=== PATIENT | female | born 1985 | race Caucasian/White ===

== ENCOUNTER 2019-10-27 16:01 | Emergency (ER) | payer OTHER, SELFPAY ==
--- NOTE | ~2019-10-27 | CT_ITS ---
EXAMINATION: CTA chest PE protocol DATE: 10/27/2019 17:24 INDICATION: Chest pain. TECHNIQUE: Computed tomography angiography (CTA) of the chest was performed with 100 mL Omnipaque-350 intravenous contrast timed to evaluate the pulmonary arteries. Coronal maximum intensity projection 3D-reconstructions were created by the technologist. Automated exposure control and iterative reconst ruction technique were employed. The dose-length product was 315.41 mGy-cm. COMPARISON: Chest CT 03/29/2019 FINDINGS: There is no pneumonia, pleural effusion, or pneumothorax. The heart size is normal. No nick cardial effusion. There is no pulmonary embolus. There is mild thoracic spondylosis. IMPRESSION: 1. No pulmonary embolus. Reviewed, dictated and finalized at location A. IMPRESSION: 1. No pulmonary embolus.
--- NOTE | 2019-10-27 16:04 | ED.ABDPAIN ---
HPI - Abdominal Pain General Chief Complaint: Shortness of Breath/Dyspnea Stated Complaint: cp Time Seen by Provider: 10/27/19 16:03 History of Present Illness HPI narrative: Patient is a 34-year-old female who presents with left-sided intermittent chest pain that is been present now for the last 4 days patient notes she has had a cough that is dry but also notes history of PE patient denies any pain upon arrival notes that the pain comes and goes patient notes she is also had some dyspnea patient has had some mild upper respiratory symptoms denies fever vomiting diarrhea Pertinent past history: past UTI Related Data Home Medications Medication Instructions Recorded Confirmed aspirin [Aspir-81] 10/27/19 multivitamin [Daily Multi-Vitamin] tablet 10/27/19 Allergies Allergy/AdvReac Type Severity Reaction Status Date / Time No Known Allergies Allergy Unknown Verified 10/27/19 16:24 No Known Allergies Allergy Other Uncoded 10/27/19 16:24 Review of Systems Review of Systems: All systems reviewed & are unremarkable except as noted in HPI and below PMFSH Past Medical History Medical History (Updated 10/27/19 @ 17:47 by Wang Flores PA-C) Pulmonary embolism Family History Family History (Updated 05/18/18 @ 15:39 by DOCTOR UNKNOWN) Grandparent Family history of malignant melanoma Other Cerebrovascular accident Diabetes mellitus Family history of cardiovascular disease Family history of malignant neoplasm Hypertension Social History Social History Smoking status: Never smoker Alcohol intake: never Exam Narrative: Exam Narrative: GENERAL: Well-appearing, well-nourished, and in no acute distress. HEAD: Normocephalic, atraumatic. EYES: PERRLA and EOMI. ENT: Nares clear, no rhinorrhea or epistaxis. Mucous membranes moist. CHEST: Clear to auscultation. No respiratory distress. No wheezes rales or rhonchi HEART: Regular rate and rhythm. No murmur heard. Normal peripheral pulses. ABDOMEN: Soft, nontender, nondistended EXTREMITIES: Normal range of motion. No edema. SKIN: Warm, dry, no rash. NEURO: No focal deficits. Alert and oriented x3. PSYCH: Normal mood and affect. Course Course Emergency Course: Patient in the room in no distress aware of case findings treatment plan and diagnosis agreeing to follow-up as directed or to return if symptoms worsen or concern MDM - Abdominal Pain MDM Narrative Medical decision making narrative: Patients EKGs and labs are without significant high risk changes. Cardiac risk factors were reviewed. Patient is felt likely to be low risk for ACS and reasonable for further risk stratification testing as an outpatient. Pain was not sudden or maximal in onset without tearing or ripping. quality. No other signs or symptoms to suggest aortic dissection. A low-risk Wells criteria is noted. PE is felt to be unlikely. No pneumonia or URI symptoms were seen on evaluation today. Patient is felt to be reasonable for continued evaluation as an outpatient. Imaging Data Radiologist's impression: ITS Impressions Chest CTA 10/27/19 17:25 IMPRESSION: 1. No pulmonary embolus. ECG Data EKG #1: ECG completion date: 10/27/19 ECG completion time: 17:46 sinus rhythm, non-specific ST changes, normal QRS, normal QT and NL axis Discharge Plan Discharge Clinical Impression: Chest pain Patient Disposition: Home, Self-Care Condition: Stable Instructions: Antibiotic Form, Chest Pain (ED) Additional Instructions: Follow up with your primary care provider within 1-2 days to set up for reevaluation. Go to ER for shortness of breath, difficulty breathing, chest pain, fever/chills, weakness, nauseau/vomitting, etc. or any other concerns. Take any prescribed medications as directed. If you do not have a drug allergy to tylenol or motrin and can tolerate it then take tylenol or mo
[2019-10-27 16:06] VITALS: BP 129/86; PULSE 96; RESP 20; TEMP 36.6; O2SAT 99
--- NOTE | 2019-10-27 16:15 | ECG_ITS ---
Measurements Intervals [place] Rate: 89 P: 18 IN: 116 QRS: -14 QRSD: 86 T: 16 QT: 327 QTc: 398 Interpretive Statements SINUS RHYTHM WITH SHORT IN INTERVAL BORDERLINE T WAVE ABNORMALITY- INFERIOR LEADS BORDERLINE ECG Electronically Signed On 10-27-2019 19:46:46 CDT by Osiel Sosa D.O.
[2019-10-27 16:23] LABS: Basophils Absolute Auto 0.1 K/mm3 (0.0-0.1); Basophils Percent Auto 0.8 % (0.2-1.2); Eosinophils Absolute Auto 0.4 K/mm3 (0-0.3); Eosinophils Percent Auto 4.3 % (0-4.4); Hematocrit 35.3 % (37.0-47.0); Hemoglobin 11.2 g/dL (12.0-15.0); Immature Granulocyte Absolute 0.03 K/mm3 (0.00-0.031); Immature Granulocyte Percent A 0.3 % (0-0.5); Lymphocytes Absolute Auto 2.39 K/mm3 (0.9-3.2); Lymphocytes Percent Auto 25.8 % (18.3-44.2); Mean Corpuscular HGB Conc 31.7 g/dl (32-36); Mean Corpuscular Hemoglobin 27.9 pg (26-34); Mean Corpuscular Volume 87.8 fl (80-100); Mean Platelet Volume 8.4 fl (7.4-10.4); Monocytes Absolute Auto 0.8 K/mm3 (0.1-0.6); Monocytes Percent Auto 8.3 % (2.6-8.5); Neutrophils Absolute Auto 5.6 K/mm3 (1.3-6.7); Neutrophils Percent Auto 60.5 % (45.5-73.1); Platelet Count Result 392 k/mm3 (150-375); Red Blood Count 4.02 M/mm3 (4.2-5.4); Red Cell Distribution Width 13.2 % (11.5-14.5); White Blood Count 9.3 K/mm3 (4.5-10.0)
[2019-10-27 16:36] LABS: Blood Urea Nitrogen 19 mg/dL (7-17); Calcium 8.9 mg/dL (8.4-10.2); Carbon Dioxide 26 mmol/L (22-30); Chloride 105 mmol/L (98-107); Estimated CRCL calculation 85 ml/min; Estimated Glomerular Filt Rate > 60; Glucose 97 mg/dL (65-105); Potassium 3.9 mmol/L (3.4-5.0); Sodium 140 mmol/L (137-145)
[2019-10-27 16:48] LABS: NT Pro B Type Natriuretic Pept 37 PG/ML (5-100); Troponin I < 0.012 ng/mL (0.000-0.034)
[2019-10-27 16:55] LABS: Prothrombin Time 12.8 Seconds (11.1-14.7)
[2019-10-27 16:56] LABS: Partial Thromboplastin Time 28.4 SECONDS (22.3-36.8)
[2019-10-27 17:00] VITALS: BP 124/71; PULSE 97; RESP 16; O2SAT 100
[2019-10-27 18:00] VITALS: BP 112/72; PULSE 92; RESP 16; O2SAT 100
== END 2019-10-27 18:05 | disposition home or self-care (01) ==
PROVIDERS: Emergency Medicine Emergency Medical Services; Emergency Provider Emergency Medicine; PCP Internal Medicine Geriatric Medicine
DX: R07.9 Chest pain, unspecified (principal); Z86.711 Personal history of pulmonary embolism; Z79.82 Long term (current) use of aspirin; R94.31 Abnormal electrocardiogram [ECG] [EKG]
CPT/HCPCS: 36415; 71275; 80048; 83880; 84484; 85025; 85610; 85730; 93005; 99284; Q9967

== ENCOUNTER 2020-04-13 11:19 | Outpatient (CLI) | payer OTHER, SELFPAY ==
--- NOTE | ~2020-04-13 | US_ITS ---
EXAMINATION: US pelvic complete w TV DATE: 04/13/2020 14:59 INDICATION: Menorrhagia TECHNIQUE: Multiple transabdominal and endovaginal sonographic images of the pelvis were obtained. COMPARISON: None. FINDINGS: The uterus measures 8.3 x 3.9 x 4.8 cm. The endometrial complex measures 7 mm. The right ov soto measures 2.9 x 2.3 x 1.8 cm. The left ovary measures 3.5 x 2.2 x 2.2 cm. There is normal vascular flow in the ovaries. There is no free fluid in the pelvis. IMPRESSION: 1. No sonographic correlate for the patient's symptoms. Reviewed, dictated and finalized at location B.
== END 2020-04-13 11:20 | disposition home or self-care (01) ==
LOC: ANHIMG 11:24
PROVIDERS: PCP Internal Medicine Geriatric Medicine; Visit Provider Obstetrics & Gynecology
DX: N92.0 Excessive and frequent menstruation with regular cycle (principal)
CPT/HCPCS: 76830; 76856

== ENCOUNTER 2020-08-31 19:17 | Emergency (ER) | payer OTHER, SELFPAY ==
[2020-08-31 19:30] VITALS: BP 155/86; PULSE 104; RESP 18; TEMP 36.4; O2SAT 98
--- NOTE | 2020-08-31 19:52 | ED.URI ---
HPI - URI/Sore Throat General Chief Complaint: Upper Respiratory Infection Stated Complaint: sore throat Time Seen by Provider: 08/31/20 19:41 Source: patient and RN notes reviewed Mode of arrival: ambulatory Limitations: no limitations History of Present Illness HPI Narrative: Patient presents today complaining of 4-day history of sore throat that has been worse since yesterday. Denies any additional symptoms to include cough, congestion, rhinorrhea, fever, nausea, vomiting, diarrhea. She had COVID-19 in May. Currently rates her pain 5/10, which increases with swallowing. She has tried no [id number] treatment prior to arrival. She is a non-smoker. MD elicited complaint: sore throat Related Data Home Medications Medication Instructions Recorded Confirmed aspirin [Aspir-Low] 81 mg PO DAILY 08/31/20 08/31/20 Allergies Allergy/AdvReac Type Severity Reaction Status Date / Time No Known Allergies Allergy Unknown Verified 08/31/20 19:39 Review of Systems Review of Systems: Narrative: CONSTITUTIONAL: Denies body aches, fever, chills, or sweats. EYES: Denies visual changes, redness, or discharge. ENT: Denies rhinorrhea, congestion, or otalgia.+ Sore throat CARDIOVASCULAR: Denies chest pain, palpitations, or edema. RESPIRATORY: Denies cough or dyspnea. GASTROINTESTINAL: Denies abdominal pain, nausea, vomiting, or diarrhea. GENITOURINARY: Denies dysuria or hematuria. SKIN: Denies rash, itching, or wounds. MUSCULOSKELETAL: Denies back pain, joint pain, or myalgia. NEUROLOGIC: Denies headache, numbness, tingling, or weakness. PSYCH: Denies depression or anxiety. [facility] Past Medical History Medical History Pulmonary embolism Family History Family History Grandparent Family history of malignant melanoma Other Cerebrovascular accident Diabetes mellitus Family history of cardiovascular disease Family history of malignant neoplasm Hypertension Social History Social History Smoking status: Never smoker Alcohol intake: never Comments At time of signature, I have reviewed and agree with nursing past medical, surgical, social and family history unless otherwise noted. Please see nursing chart for further information. There is no relevant family history pertinent to the presenting complaint Exam Narrative: Exam Narrative: GENERAL: Well-appearing, well-nourished, and in no acute distress. HEAD: Normocephalic, atraumatic. EYES: EOMI. No redness or drainage. Conjunctivae normal. ENT: Mucous membranes pink and moist. Nares clear. No rhinorrhea. TMs normal bilaterally. Throat mildly erythematous posteriorly, but otherwise normal. Uvula midline. NECK: Normal AROM. Supple. No lymphadenopathy. CHEST: No respiratory distress. Clear to auscultation. HEART: Regular rate and rhythm. No murmur appreciated. Normal peripheral pulses. EXTREMITIES: Normal range of motion. No edema. SKIN: Warm, dry, no rash. Capillary refill normal. Normal skin turgor. NEURO: No focal deficits. Alert and oriented x3. Gait steady. PSYCH: Normal affect. No signs of depression or anxiety. Course Vital Signs Vital signs: Vital Signs Temperature 97.5 F L 08/31/20 19:30 Pulse Rate 104 H 08/31/20 19:30 Respiratory Rate 18 08/31/20 19:30 Blood Pressure 155/86 H 08/31/20 19:30 Pulse Oximetry 98 08/31/20 19:30 Temperature 97.5 F L 08/31/20 19:30 Pulse Rate 104 H 08/31/20 19:30 Respiratory Rate 18 08/31/20 19:30 Blood Pressure 155/86 H 08/31/20 19:30 Pulse Oximetry 98 08/31/20 19:30 Reviewed. Pt has been instructed to follow up with her PCP regarding her elevated blood pressure today. MDM - URI/Sore Throat Differential Diagnosis Differential diagnosis: Likely upper respiratory infection, otitis media, viral infectio
== END 2020-08-31 20:00 | disposition home or self-care (01) ==
PROVIDERS: Emergency Provider Nurse Practitioner; PCP Internal Medicine Geriatric Medicine
DX: J02.8 Acute pharyngitis due to other specified organisms (principal); Z86.16 Personal history of COVID-19; Z86.711 Personal history of pulmonary embolism; Z79.82 Long term (current) use of aspirin
CPT/HCPCS: 87081; 87880; 99213; G0463

== ENCOUNTER → 2020-10-09 02:20 | Outpatient (CLI) | payer OTHER, SELFPAY ==
[2020-10-09 22:46] LABS: SARS-CoV-2 RNA PCR Negative
== END ==
PROVIDERS: PCP Internal Medicine Geriatric Medicine; Visit Provider Urology
DX: Z01.812 Encounter for preprocedural laboratory examination (principal); Z20.822 Contact with and (suspected) exposure to COVID-19
CPT/HCPCS: C9803; U0003; U0005

== ENCOUNTER 2020-10-09 12:22 | Outpatient (CLI) | payer OTHER, SELFPAY ==
[2020-10-09 12:54] LABS: Hematocrit 41.6 % (37.0-47.0); Hemoglobin 13.8 g/dL (12.0-15.0)
== END 2020-10-09 12:23 | disposition home or self-care (01) ==
LOC: ANHSURGERY 12:23
PROVIDERS: Obstetrics & Gynecology; PCP Internal Medicine Geriatric Medicine; Visit Provider Urology
DX: Z01.818 Encounter for other preprocedural examination (principal); N39.3 Stress incontinence (female) (male); N92.6 Irregular menstruation, unspecified
CPT/HCPCS: 36415; 85014; 85018; 87086; 87088

== ENCOUNTER 2020-10-12 00:51 | Day surgery (SDC) | payer OTHER, SELFPAY ==
--- NOTE | 2020-10-06 09:57 | PM.IMHP ---
H&P: HPI History of Present Illness Date/Time: 10/06/20 09:57 Chief Complaint: stress incontinence Narrative: Krysta Parker is a 35 year old female with stress incontinence Review of Systems Review of Systems: All systems reviewed & are unremarkable except as noted in HPI and below PMFSH Past Medical History Medical History Pulmonary embolism Family History Family History Grandparent Family history of malignant melanoma Other Cerebrovascular accident Diabetes mellitus Family history of cardiovascular disease Family history of malignant neoplasm Hypertension Social History Social History Smoking status: Never smoker Alcohol intake: never Meds Home Medications and Allergies Home Medications Medication Instructions Recorded Confirmed Type aspirin [Aspir-Low] 81 mg PO DAILY 08/31/20 08/31/20 History Allergies Allergy/AdvReac Type Severity Reaction Status Date / Time No Known Allergies Allergy Unknown Verified 08/31/20 19:39 Exam Const: General: cooperative and healthy appearing HENMT: Head: normal to inspection Eyes: General: appearance normal, both eyes and all related structures Resp: Effort & Inspection: normal respiratory effort and able to speak in complete sentences Back/Spine/Pelvis: Back: no CVA tenderness Neuro: General: patient oriented x3 Assessment and Plan Assessment and plan (1) KATALINA (stress urinary incontinence, female): Code(s): N39.3 - Stress incontinence (female) (male) Status: Acute Assessment and Plan: urethral sling
[2020-10-09 10:15] VITALS: BMI 25.7
--- NOTE | 2020-10-09 11:50 | PM.IMHP ---
H&P: HPI History of Present Illness Date/Time: 10/09/20 11:50 Chief Complaint: bleeding refractory to medical therapy Narrative: Krysta Parker is a 35 year old female 3 para 3 is admitted for removal of Mirena hysteroscopy dilatation curettage. She has had heavy irregular bleeding. She would like to have a Nexplanon placed as well. She is undergoing a sling with Dr. Avalos concomitantly. Risks and benefits reviewed Review of Systems Review of Systems: All systems reviewed & are unremarkable except as noted in HPI and below PMFSH Past Medical History Medical History Pulmonary embolism Family History Family History Grandparent Family history of malignant melanoma Other Cerebrovascular accident Diabetes mellitus Family history of cardiovascular disease Family history of malignant neoplasm Hypertension Social History Social History Smoking status: Never smoker Alcohol intake: never Spiritual care concerns: No Meds Home Medications and Allergies Home Medications Medication Instructions Recorded Confirmed Type aspirin [Aspir-Low] 81 mg PO DAILY 08/31/20 10/09/20 History Adult Multivitamin Gummies 1 tablet PO DAILY 10/09/20 10/09/20 History Allergies Allergy/AdvReac Type Severity Reaction Status Date / Time No Known Allergies Allergy Unknown Verified 08/31/20 19:39 Exam Const: General: no acute distress Eyes: General: appearance normal, both eyes and all related structures Neck: Neck: supple and no JVD Thyroid: thyroid normal Resp: Effort & Inspection: normal respiratory effort Auscultation: clear to auscultation bilaterally Cardio: Rate: regular rate Rhythm: regular rhythm GI: Inspection: non-distended GI Palp: Yes Soft to palpation, No Tenderness to palpation present (GI) and No Guarding due to palpation present (GI) Auscultation: normal bowel sounds : General: Yes bladder normal to palpation External Female Exam: normal external appearance Speculum Exam - Vagina: normal vaginal discharge and No vaginal bleeding Speculum Exam - Cervix: nontender Bimanual exam- vagina & uterus: bladder normal to palpation and No Cervical tenderness present OB/external & speculum: No vaginal bleeding Skin: General skin exam: no rashes or lesions noted Extrem: General: normal to inspection and no edema Psych: Mental Status: mental status grossly normal Affect: normal affect Assessment and Plan Additional Plan impression: Irregular bleeding extraction to medical therapy Plan: Hysteroscopy / dilatation curettage / IUD removal. We will place Nexplanon as well
--- NOTE | 2020-10-12 06:29 | WPDHPUPDATE1 ---
History and Physical Update Update Date/Time: 10/12/20 06:29 History and Physical has been reviewed, including an updated exam of the patient. There are NO changes in the patient's condition. Risks, benefits, and alternatives have been discussed and questions answered. Patient agrees to proceed with procedure.
--- NOTE | 2020-10-12 06:30 | WPDHPUPDATE1 ---
History and Physical Update Update Date/Time: 10/12/20 06:30 History and Physical has been reviewed, including an updated exam of the patient. There are NO changes in the patient's condition. Risks, benefits, and alternatives have been discussed and questions answered. Patient agrees to proceed with procedure.
--- NOTE | 2020-10-12 07:17 | WPDHPUPDATE1 ---
History and Physical Update Update Date/Time: 10/12/20 07:17 History and Physical has been reviewed, including an updated exam of the patient. There are NO changes in the patient's condition. Risks, benefits, and alternatives have been discussed and questions answered. Patient agrees to proceed with procedure.
[2020-10-12] MEDS: LACTATED RINGERS 1,000 ML 30 ML IV CONT ×2 (07:29→10:13)
[2020-10-12] MEDS: ACETAMINOPHEN 500 MG TABLET 1000 MG PO (07:31)
--- NOTE | 2020-10-12 08:00 | WPDANESEPPF ---
Anes - Initial Pre Proc Eval Procedure: Operation Date: 10/12/20 09:15 Proposed Procedures p Urethral Sling - Kavon Avalos MD s Hysteroscopy Dilation and Curettage And Removal Of Intrauterine Device, Insertion Of Explanon - Sanya Roberts MD Date/Time: 10/12/20 08:00 Surgeon: Kavon Avalos MD Pre Op Diagnosis: Stress Incontinence, Irregular Bleeding Patient Data Age: 35 Gender: F Height: 1.63 m Weight: 68.04 kg Allergies Allergy/AdvReac Type Severity Reaction Status Date / Time No Known Allergies Allergy Unknown Verified 08/31/20 19:39 Home Medications Medication Instructions Recorded Confirmed Type aspirin [Aspir-Low] 81 mg PO DAILY 08/31/20 10/09/20 History Adult Multivitamin Gummies 1 tablet PO DAILY 10/09/20 10/09/20 History Patient hx anesthesia problems: none Family hx anesthesia problems: none PMFSH Past Medical History Medical History Pulmonary embolism Family History Family History Grandparent Family history of malignant melanoma Other Cerebrovascular accident Diabetes mellitus Family history of cardiovascular disease Family history of malignant neoplasm Hypertension Social History Social History Smoking status: Never smoker Alcohol intake: never Living arrangements: with family Spiritual care concerns: No Anes - Eval Final PreProcedure Day of Procedure 10/12/20 08:00 Patient weight: normal Heart: regular rate and rhythm Lungs: clear to auscultation and normal air movement Airway: Mallampati scale class II Neurological: alert and oriented Last oral intake: >/= 8 hours ASA classification: II Emergent: no Anesthetic plan: proceed Anesthesia type and monitoring: general GIVS and LMA Informed Consent: The patient's anesthetic plan and its attendant risks and benefits were discussed with the patient/family/POA. Questions were solicited and answers provided to the satisfaction of the patient/family/POA.
[2020-10-12 08:22] VITALS: BP 120/77; PULSE 82; RESP 18; TEMP 36.4; O2SAT 100
[2020-10-12] MEDS: ceFAZolin 2 GM/D5W 50 ML 2 GM/50 ML BAG IVPB (09:30)
[2020-10-12] MEDS: KETOROLAC 15 MG/ML VIAL (*BKC) IV PUSH (09:38)
[2020-10-12] MEDS: BUPIVACAINE/EPINEPHRINE 0.25% 50 ML VIAL 10 ML INFILTRATE (09:46)
--- NOTE | 2020-10-12 09:54 | SUR.OPER ---
Nexplanon device inserted into left arm by Dr. Fred Marsh.
--- NOTE | 2020-10-12 09:56 | P.OP_ITS ---
Procedure Note - Detailed Date of procedure: 10/12/20 Pre-op diagnosis: Stress Incontinence, Irregular Bleeding Stress urinary incontinence Post-op diagnosis: same Procedure performed: Transobturator Mid-urethral sling Cystoscopy Description of procedure: Anesthesia: Mac, local This is a patient with confirmed stress urinary incontinence. She desires correction. She understands the risks of bleeding, infection, damage to the urinary tract, lack of cure of stress incontinence, recurrence of stress incontinence, postoperative voiding dysfunction including incontinence and retention, need for ancillary procedures to loosen remove the sling, postoperative voiding dysfunction including retention and overactive bladder, hip and leg pain, dyspareunia, mesh related complications including exposure and extrusion. She agrees to proceed. She understands it will not help overactive bladder symptoms if present. She was correctly identified and informed consent obtained. She is brought to the operating room. She was given appropriate anesthesia. She was placed in the dorsal lithotomy position. All pressure points were padded. She was given appropriate perioperative antibiotics and a time-out performed. A Perry catheter is placed. I marked out the thigh incisions anesthetize the skin and made those incisions. I anesthetized the anterior vaginal wall over the mid urethra. I made a 1 cm incision. I dissected out laterally taking great care not to injure the urethra or the vaginal wall. Passed the helical trocars 1st on the left and then on the right from the thigh incision towards the vaginal incision. Sling was connected to the trocars and brought out through the thigh incision. I tensioned the sling appropriately. I cut and removed the plastic sheaths. I closed the incision with 2 0 Vicryl. I then performed cystoscopy. There was no surgical artifact or abnormalities inside the bladder. The urethra was normal without surgical artifact. I cut the excess sling material. I shandra sed the incisions with glue. I then turned her over to her research coordinator for the remainder of her surgery. Implants: Mid urethral sling Surgeon: Kavon Avalos MD Drains: No Packing: No Pathology: none sent Complications: No immediate complications Condition: stable Disposition: PACU
[2020-10-12 10:13] VITALS: BP 106/64; PULSE 79; RESP 16; O2SAT 99
--- NOTE | 2020-10-12 10:16 | P.OP_ITS ---
Procedure Note - Detailed Date of procedure: 10/12/20 Pre-op diagnosis: Stress Incontinence, Irregular Bleeding Surgeon: Sanya Roberts MD Postop diagnosis: Stress urinary incontinence/irregular bleeding/change in contraception Procedure: Hysteroscopy/dilatation and curettage/removal of IUD/placement of Ne xplanon. This was done in conjunction with AT OT performed by Dr. Avalos EBL: 5cc for my portion Anesthesia: IV sedation and local Complications: None Findings: An old IUD that was somewhat ectopic iud placed low in the uterine cervix. Thickened irregular endometrial tissue on hysteroscopy Description of procedure: The patient was prepped and draped in the sterile fashion and Dr. Avalos undertook a T of T. 2.5cc of 1% xylocaine anesthesia was then placed at 2:48 a.m. and 10:00 a.m. respectively of the cervix. The uterus sounded to 8cm after the IUD was removed in full. Serial dilatation with fragmented dilators performed followed by passage of the 5mm visualizing hysteroscope using normal saline as visualizing medium. Thick irregular endometrial tissue was seen but no evidence of polyp or other distinguishable abnormal tissue. The uterus was then scraped over the entire 360? until a good grating sound was heard. The instruments removed and blood loss estimated at5cc. Next the left antecubital area was swabbed with Betadine solution. The Nexplanon was placed subcutaneously and the correct fashion and palpated subcutaneously and correct placement. Blood loss for that portion was none. She tolerated procedure well. All sponge, needle, instrument counts were correct. There were no immediate complications
[2020-10-12 10:45] VITALS: BP 104/58; PULSE 75; RESP 14; O2SAT 100
[2020-10-12 11:15] VITALS: BP 96/68; PULSE 69; RESP 14
--- NOTE | 2020-10-12 16:48 | SUR.PHASEII ---
1110; PT AWAKE AND ALERT. DENIES PAIN OR NAUSEA. STATES SHE IS READY TO GO HOME.
== END 2020-10-12 11:25 | disposition home or self-care (01) ==
PROVIDERS: Obstetrics & Gynecology; PCP Internal Medicine Geriatric Medicine; Visit Provider Urology
PROC: (CPT 57288; principal; 2020-10-12 09:15)
PROC: 0U5B8ZZ Destruction of Endometrium, Via Natural or Artificial Opening Endoscopic (ICD-10-PCS; CPT 58563; 2020-10-12 09:15)
DX: N39.3 Stress incontinence (female) (male) (principal); N93.9 Abnormal uterine and vaginal bleeding, unspecified; Z30.432 Encounter for removal of intrauterine contraceptive device; Z86.711 Personal history of pulmonary embolism; Z79.82 Long term (current) use of aspirin
CPT/HCPCS: 58558; 58301; 11981; 57288; 36415; 85014; 85018; 87086; 87088; 88305; A9270; C1771; C9803; J0690; J1100; J1885; J2250; J2405; J2704; J3010; J7030; J7120; U0003; U0005

== ENCOUNTER 2020-11-29 15:04 | Outpatient (CLI) | payer OTHER, SELFPAY ==
--- NOTE | ~2020-11-29 | MR_ITS ---
EXAMINATION: MR knee RT wo con DATE: 11/29/2020 15:52 INDICATION: Right knee pain TECHNIQUE: Magnetic resonance imaging (MRI) of the right knee was performed without intravenous contr ast. Sequences included coronal PD-weighted FSE, coronal PD-weighted FS FSE, sagittal T2-weighted FS E, sagittal PD-weighted FS FSE and axial PD weighted fat saturated FSE. COMPARISON: None. FINDINGS: Medial compartment: Complex tear of the body and posterior horn of the medial meniscus. This includes a longitudinal hori zontal tear plane extending to the inferior articular surface and a secondary radial tear involving t he inner third of the meniscus at the junction of the body and posterior horn. Scattered chondral magno face irregularity along the weightbearing medial femoral condyle. Cartilage at the medial tibial plat eau appears relatively preserved however there is mild subarticular edema along the medial rim. Lateral compartment: Lateral meniscus is normal. Mild partial-thickness chondral fissuring along the posterior rim of the lateral tibial plateau. Patellofemoral compartment: Focal chondral swelling and partial-thickness fissuring at the inferior aspect of the medial trochlea . Remaining cartilage in the patellofemoral compartment is normal. Ligaments and tendons: Anterior and posterior cruciate ligaments are normal. The medial collateral ligament and fibular jacquie ateral ligament complex are normal. The extensor mechanism is normal. The visualized medial and later al hamstring tendons as well as the iliotibial band are normal. Fluid: Physiologic amount of fluid in the joint space. No loose osteochondral bodies identified. Osseous/other: Normal marrow signal. No fracture or abnormal marrow replacing process. There is edema in the superfi cial suprapatellar fat pad which can be seen with fat pad impingement syndrome. IMPRESSION: 1. Complex medial meniscal tear. 2. Minimal tricompartmental osteoarthritis. 3. Edema in the superficial suprapatellar fat pad which can be seen with fat pad impingement syndrome . Reviewed, dictated and finalized at location A. IMPRESSION: 1. Complex medial meniscal tear. 2. Minimal tricompartmental osteoarthritis. 3. Edema in the superficial suprapatellar fat pad which can be seen with fat pa d impingement syndrome.
== END 2020-11-29 15:05 | disposition home or self-care (01) ==
PROVIDERS: PCP Internal Medicine Geriatric Medicine; Visit Provider Orthopaedic Surgery
DX: M22.41 Chondromalacia patellae, right knee (principal); M25.561 Pain in right knee; S83.231A Complex tear of medial meniscus, current injury, right knee, initial encounter; M17.11 Unilateral primary osteoarthritis, right knee; M79.89 Other specified soft tissue disorders
CPT/HCPCS: 73721

== ENCOUNTER 2021-02-07 00:06 | Day surgery (SDC) | payer OTHER, SELFPAY ==
[2021-02-05 09:27] VITALS: BMI 25.7
--- NOTE | 2021-02-06 10:07 | WPDANESEPPF ---
Anes - Initial Pre Proc Eval Procedure: Operation Date: 02/07/21 10:30 Proposed Procedures p Right Knee Arthroscopic Partial Medial Meniscectomy - Sean Duran MD Date/Time: 02/06/21 10:07 Surgeon: Sean Duran MD Pre Op Diagnosis: chondromylasia right patella Patient Data Age: 35 Gender: F Height: 1.63 m Weight: 68.04 kg Allergies Allergy/AdvReac Type Severity Reaction Status Date / Time No Known Allergies Allergy Unknown Verified 08/31/20 19:39 Home Medications Medication Instructions Recorded Confirmed Type aspirin 81 mg PO DAILY 08/31/20 02/05/21 History Adult Multivitamin Gummies 1 tablet PO DAILY 10/09/20 02/05/21 History Patient hx anesthesia problems: none Family hx anesthesia problems: none [facility] Past Medical History Medical History (Updated 02/06/21 @ 10:07 by Jon Quinteros DO) Pulmonary embolism with Family History Family History Grandparent Family history of malignant melanoma Other Cerebrovascular accident Diabetes mellitus Family history of cardiovascular disease Family history of malignant neoplasm Hypertension Social History Social History Smoking status: Never smoker Alcohol intake: never Living arrangements: with family Spiritual care concerns: No Anes - Eval Final PreProcedure Day of Procedure 02/06/21 10:07 Patient weight: overweight Heart: regular rate and rhythm Lungs: clear to auscultation and normal air movement Airway: Mallampati scale class II Neurological: alert and oriented Last oral intake: >/= 8 hours ASA classification: II Emergent: no Anesthetic plan: proceed Anesthesia type and monitoring: general LMA and standard monitoring Informed Consent: The patient's anesthetic plan and its attendant risks and benefits were discussed with the patient/family/POA. Questions were solicited and answers provided to the satisfaction of the patient/family/POA.
[2021-02-07] VITALS (9 sets, daily range): BP systolic 109–144; BP diastolic 68–78; PULSE 71–94; RESP 12–20; TEMP 37.2; O2SAT 97–100
[2021-02-07] MEDS: ACETAMINOPHEN 500 MG TABLET 1000 MG PO (08:45)
[2021-02-07] MEDS: KETOROLAC 15 MG/ML VIAL (*BKC) IV PUSH (08:55)
[2021-02-07] MEDS: LACTATED RINGERS 1,000 ML 30 ML IV CONT ×2 (08:58→11:26)
--- NOTE | 2021-02-07 10:11 | WPDHPUPDATE1 ---
History and Physical Update Update Date/Time: 02/07/21 10:11 History and Physical has been reviewed, including an updated exam of the patient. There are NO changes in the patient's condition. Risks, benefits, and alternatives have been discussed and questions answered. Patient agrees to proceed with procedure.
[2021-02-07] MEDS: ceFAZolin 2 GM/D5W 50 ML 2 GM/50 ML BAG IVPB (10:39)
--- NOTE | 2021-02-07 11:05 | W.PM.PROC2 ---
Procedure Note - Detailed Date of Procedure 02/07/21 Pre-op Diagnosis Symptomatic medial meniscus tear, right knee. Post-op Diagnosis same Procedure Performed Arthroscopic partial medial meniscectomy. Surgeon Sean Duran MD Equipment Installation Professional Mabel Yates PA-C Anesthesia general Indications Persistent medial knee pain. MRI confirmed medial meniscus tear. Failed conservative treatment including injection and therapy. Findings Complex posterior horn and medial medial meniscus tear. Description of Procedure The patient was identified and the surgical site confirmed and signed in the preoperative holding area. Antibiotics were started per protocol. She was brought to the operative room and transferred to the OR table. A general anesthetic was administered. Supine position with the operative lower extremity position in the leg myrick after placement of a well padded tourniquet. The leg support was lowered and the contralateral limb was supported with a soft bolster. The knee was prepped and draped in the usual sterile fashion. A time-out was performed. The portal sites were marked and infiltrated with 0.5% Marcaine 20 mL. The limb was exsanguinated and the tourniquet inflated to 300 mL Hg. Standard inferolateral and inferomedial portals were established. Inflow was obtained with the saline pump. The camera was introduced. Diagnostic inspection of the joint was accomplished. The meniscus was debrided with the arthroscopic shaver and punches until stable. The arthroscopic instruments were removed. The tourniquet released and wounds closed with subcutaneous 3-0 Monocryl absorbable suture. Steri strips and a sterile dressing were applied. A light elastic wrap was placed. The patient was extubated and brought to the recovery room in stable condition. Estimated Blood Loss 1 Complications No immediate complications Condition stable Disposition PACU
[2021-02-07] MEDS: BUPIVACAINE/EPINEPHRINE 0.5% 10 ML VIAL 50 ML INFILTRATE (11:07)
--- NOTE | 2021-02-07 13:33 | SUR.PHASEII ---
REVIEWED D/C INSTRUCTIONS AND STABLE. SPOUSE EN ROUTE. AWAITING RIDE HOME.
== END 2021-02-07 13:46 | disposition home or self-care (01) ==
PROVIDERS: PCP Internal Medicine Geriatric Medicine; Visit Provider Orthopaedic Surgery
PROC: (CPT 29870; principal; 2021-02-07 10:30)
DX: M23.321 Other meniscus derangements, posterior horn of medial meniscus, right knee (principal); M22.41 Chondromalacia patellae, right knee; Z86.711 Personal history of pulmonary embolism; Z79.82 Long term (current) use of aspirin
CPT/HCPCS: 29881; A9270; J0690; J1885; J3010; J7120

== ENCOUNTER 2021-03-06 15:30 | Outpatient (RCR) | payer OTHER, SELFPAY ==
--- NOTE | 2021-02-13 10:34 | PTOPEVAL ---
PHYSICAL THERAPY EVALUATION AND PLAN OF CARE Thank you for referring Krysta Parker to [facility].? The patient is scheduled to be seen for therapy for follow-up in 3 weeks. Please review, sign, date and return this plan of care BRUNILDA. I agree with and certify that the following plan of care is medically necessary. Referring Physician Date Attending Provider: GLENYS Shetty Evaluation Outpatient Past Medical History Neurological History Diagnosis right knee arthroscopy, medial menisectomy Onset 02/07/2021 Subjective Information Krysta is here today 7 days Query Text:As Reported By Patient/ s/p right median menisectomy. Family She reports pain is doing well She would like to be able to return to [employer] [employer]. Self Report Pain Assessment Right Knee(s) Reported Pain Level 0 Pain Frequency Acute,Intermittent Lowest Pain Intensity 0 Greatest Pain Intensity 2 Pain Score Pain Score 0: Self Report Interventions Used Interventions Used By Clinicians Exercise Lower Extremity Range of Motion Knee Range of Motion Right Knee Flexion Range of Motion - Active 146 Knee Extension Range of Motion - Active 0 Query Text: Lower Extremity Muscle Strength Testing Hip Strength Left Hip Flexion Strength 5 Normal Hip Extension Strength 3+ Fair + Hip Abduction Strength 3+ Fair + Right Hip Flexion Strength 5 Normal Hip Extension Strength 3- Fair - Hip Abduction Strength 3 Fair Knee Strength Bilateral Knee Flexion Strength 5 Normal Knee Extension Strength 5 Normal Knee Strength Comments functional squat depth: thighs greater than parallel to floor; gastroc Muscle Length Testing Muscle Length Testing Anupam Test Shortened Muscles Short (R) Iliopsoas,Short (L) Iliopsoas General Exercise General Exercises Side Bilateral Exercise Location hips, knees Exercise Type Active Exercise Description -clamshells resisted Query Text:Record Sets, Reps, -single leg bridge Resistance, and Position -s/l hip abduction against wall with towel behind heel -single leg squat to chair -s/l modified plank with s/l hip abduction of top leg Rehab Teaching Rehab Teaching Teaching Topic Rehab Teaching Topic Components Exercise,Home Program As Pertains To Progression,Safety,Technique, Ther
--- NOTE | 2021-03-06 15:56 | PTOPEVAL ---
PHYSICAL THERAPY DISCHARGE NOTE Thank you for referring Krysta Parker to [facility]. Please review, sign, date and return this plan of care BRUNILDA. I agree with and certify that the following plan of care is medically necessary. Referring Physician Date Attending Provider: GLENYS Shetty Discharge Diagnosis right knee arthroscopy, medial menisectomy Onset 02/07/2021 Subjective Information No pain with return to work, Query Text:As Reported By Patient/ running, and uri 5miles. Family Doctor cancelled remaining appointments. Self Report Pain Assessment Right Knee(s) Reported Pain Level 0 Pain Frequency Acute,Intermittent Lowest Pain Intensity 0 Greatest Pain Intensity 0 Pain Score Pain Score 0: Self Report Interventions Used Interventions Used By Clinicians Exercise Lower Extremity Muscle Strength Testing Hip Strength Left Hip Flexion Strength 5 Normal Hip Extension Strength 4 Good Hip Abduction Strength 5 Normal Right Hip Flexion Strength 5 Normal Hip Extension Strength 4 Good Hip Abduction Strength 5 Normal Knee Strength Bilateral Knee Flexion Strength 5 Normal Knee Extension Strength 5 Normal Knee Strength Comments functional squat depth: thighs greater than parallel to floor; -single leg squat: femor adducts - added band around knees for cueing to engage hip rotators and helps to correct femoral posturing General Exercise General Exercises Side Bilateral Exercise Location hips, knees Exercise Type Active Exercise Description -clamshells resisted Query Text:Record Sets, Reps, -single leg bridge Resistance, and Position -s/l hip abduction against wall with towel behind heel -single leg squat to chair - added green band around knees to engage hip rotators -s/l modified plank with s/l hip abduction of top leg -resisted side stepping in squated position -unilateral guatemalan lift on right Exercise Comments issued priscilla crisostomo Rehab Teaching Rehab Teaching Teaching Topic Rehab Teach
== END 2021-03-13 15:37 | disposition home or self-care (01) ==
LOC: ANHPT 15:30
PROVIDERS: PCP Internal Medicine Geriatric Medicine; Visit Provider Physician Assistant Surgical
DX: Z48.89 Encounter for other specified surgical aftercare (principal)
CPT/HCPCS: 97110; 97161

== ENCOUNTER 2021-03-09 14:51 | Emergency (ER) | payer OTHER, SELFPAY ==
[2021-03-09 14:55] VITALS: BP 116/69; PULSE 84; RESP 18; TEMP 37.2; O2SAT 99
--- NOTE | 2021-03-09 15:20 | ED.URI ---
HPI - URI/Sore Throat General Chief Complaint: Upper Respiratory Infection Stated Complaint: cough and sore ear Time Seen by Provider: 03/09/21 15:21 Source: patient History of Present Illness HPI Narrative: patient presents with bilateral ear pain sore throat, cough and nasal congestion. no shortness of breath and no chest pain MD elicited complaint: cough, sore throat and nasal congestion Related Data Allergies Allergy/AdvReac Type Severity Reaction Status Date / Time No Known Allergies Allergy Unknown Verified 02/07/21 09:18 Review of Systems Review of Systems: CONSTITUTIONAL: Denies chills, or sweats. Reports fever and generalized body aches EYES: Denies visual changes, redness, or discharge. ENT: Denies otalgia. Reports nasal congestion runny nose and sore throat CARDIOVASCULAR: Denies chest pain, palpitations, or edema. RESPIRATORY: Denies dyspnea. Reports occasional cough GASTROINTESTINAL: Denies abdominal pain, nausea, vomiting, or diarrhea. GENITOURINARY: Denies dysuria or hematuria. SKIN: Denies rash or itching. MUSCULOSKELETAL: Denies back pain, joint pain, or myalgia. Reports generalized body aches NEUROLOGIC: Denies headache, numbness, or weakness. PSYCHIATRIC: Denies anxiety or depression. PMFSH Past Medical History Medical History Pulmonary embolism with Family History Family History Grandparent Family history of malignant melanoma Other Cerebrovascular accident Diabetes mellitus Family history of cardiovascular disease Family history of malignant neoplasm Hypertension Social History Social History Smoking status: Never smoker Alcohol intake: never Spiritual care concerns: No Comments At time of signature, agree with nursing past medical, surgical, social and family history. There is no relevant family history pertinent to the presenting complaint Exam Narrative: The patient is a well-developed, well-nourished in no acute distress. SKIN: Skin is warm and dry without erythema, swelling or exudate. There is good turgor. No tenting. HEAD: Atraumatic. Normocephalic. No temporal or scalp tenderness. EYES: Moist and bright. Sclera and conjunctivae normal. No discharge. PERRLA. Extraocular motions intact. Gross visual acuity intact. EARS: Pinna is normal shape and contour. Clear external auditory canals. Right ear moderate erythremia TM dullness left TM dullness. Bilateral cerumen noted no gross hearing deficit. NOSE: pink, moist mucosa with good air movement. Clear rhinorrhea without nasal flaring. Septum midline. Mouth: moist mucous membranes. THROAT; mild erythema noted to posterior oropharynx with moderate postnasal drainage. Without exudate or ulceration.. Uvula midline. Normal movement of soft palate. NECK: Supple and nontender with full range of motion without discomfort. No meningeal signs. LUNGS: Equal and bilateral breath sounds without wheezes, rales or rhonchi. CHEST: The chest wall is without retractions or use of accessory muscles. HEART: Has a regular rate and rhythm without murmur, gallops, click or rub. ABDOMEN: Soft, nontender with positive active bowel sounds. No rebound tenderness. EXTREMITIES: Without cyanosis, clubbing or edema. Equal 2+ distal pulses and 2 second capillary refill noted. NEUROLOGIC: alert, active, . The patient moves all extremities with normal muscle strength. Normal muscle tone is noted. Normal coordination is noted. NO focal neurological findings noted. Course Vital Signs Vital signs: Vital Signs Temperature 37.2 C 03/09/21 14:55 Pulse Rate 84 03/09/21 14:55 Respiratory Rate 18 03/09/21 14:55 Blood Pressure 116/69 03/09/21 14:55 Pulse Oximetry 99 03/09/21 14:55 Temperature 37.2 C 03/09/21 14:55 Pulse Rate 84 03/09/21 14:55 Respiratory Rate 18
== END 2021-03-09 15:30 | disposition home or self-care (01) ==
PROVIDERS: Emergency Provider Nurse Practitioner Family; PCP Internal Medicine Geriatric Medicine
DX: J02.9 Acute pharyngitis, unspecified (principal); B34.9 Viral infection, unspecified; J06.9 Acute upper respiratory infection, unspecified; Z20.822 Contact with and (suspected) exposure to COVID-19; Z86.718 Personal history of other venous thrombosis and embolism
CPT/HCPCS: 87081; 87426; 87880; 99213; C9803; G0463

== ENCOUNTER 2022-04-12 08:36 | Outpatient (CLI) | payer OTHER, SELFPAY ==
--- NOTE | ~2022-04-12 | MR_ITS ---
EXAMINATION: MR knee LT wo con DATE: 04/12/2022 09:23 INDICATION: Left knee pain TECHNIQUE: Magnetic resonance imaging (MRI) of the left knee was performed without intravenous contra st. Sequences included axial PD-weighted FS FSE, coronal PD-weighted FSE and PD-weighted FS FSE, sagi ttal PD-weighted FSE, and sagittal T2-weighted FS FSE. COMPARISON: None. FINDINGS: Medial compartment: Obliquely oriented abnormal signal at the junction of the posterior horn and body, medial meniscus, e xtending to the undersurface. Small apical tear at the junction of the posterior horn and body. Mild diffuse cartilage thinning. Lateral compartment: Meniscus intact. Mild diffuse cartilage thinning. Patellofemoral compartment: Cartilage intact. Retinacula intact. Ligaments and tendons: ACL, PCL, MCL, and LCL are intact. The flexor and extensor tendons are intact. Fluid: No significant joint fluid. Osseous/other: No suspicious focal or diffuse marrow signal. IMPRESSION: 1. Oblique undersurface tear and small apical tear of the medial meniscus at the junction of the post erior horn and body. 2. Mild diffuse cartilage thinning in the medial and lateral compartments. Reviewed, dictated and finalized at location K. IMPRESSION: 1. Oblique undersurface tear and small apical tear of the medial meniscus at th e junction of the posterior horn and body. 2. Mild diffuse cartilage thinning in the medial and lateral compartments.
== END 2022-04-12 08:37 | disposition home or self-care (01) ==
PROVIDERS: PCP Internal Medicine Geriatric Medicine; Visit Provider Orthopaedic Surgery
DX: M25.562 Pain in left knee (principal); S83.242A Other tear of medial meniscus, current injury, left knee, initial encounter
CPT/HCPCS: 73721

== ENCOUNTER 2022-05-04 18:23 | Emergency (ER) | payer OTHER, SELFPAY ==
[2022-05-04 18:33] VITALS: BP 128/91; PULSE 107; RESP 18; TEMP 36.8; O2SAT 99
--- NOTE | 2022-05-04 20:49 | ED.GENADULT ---
HPI - General Adult General Chief complaint: Extremity Injury, Lower Stated complaint: right leg injury Time Seen by Provider: 05/04/22 20:02 History of Present Illness HPI narrative: 36-year-old female presented the emergency department for evaluation of a right leg injury. Patient injured her right lower leg while playing soccer. Patient reports pain at the right posterior calf and at her Achilles tendon. Related Data Home Medications Medication Instructions Recorded Confirmed Aspir-81 05/04/22 Allergies Allergy/AdvReac Type Severity Reaction Status Date / Time No Known Allergies Allergy Unknown Verified 05/04/22 20:03 Review of Systems Review of Systems: CONSTITUTIONAL: Denies fever, chills, or sweats. EYES: Denies visual changes, redness, or discharge. ENT: Denies rhinorrhea, congestion, sore throat, or otalgia. SKIN: Denies rash or itching. MUSCULOSKELETAL: See HPI NEUROLOGIC: Denies headache, numbness, or weakness. PSYCHIATRIC: Denies anxiety or depression. [facility] Past Medical History Medical History Pulmonary embolism with Family History Family History Grandparent Family history of malignant melanoma Other Cerebrovascular accident Diabetes mellitus Family history of cardiovascular disease Family history of malignant neoplasm Hypertension Social History Social History Smoking status: Never smoker Alcohol intake: never Spiritual care concerns: No Exam Narrative: APPEARANCE: Well appearing, no pain, no distress, well-nourished. HEAD: normocephalic, atraumatic. EYES: PERRLA/EOMI, conjunctivae clear. NOSE: Normal no drainage EARS:TMS clear with good light reflex. THROAT: Pharynx clear, no exudate. NECK: Supple. No adenopathy, no masses. RESPIRATORY: Airway patent, respirations nonlabored. Clear to auscultation bilaterally, no rales, rhonchi, wheezing. CARDIOVASCULAR: Regular rate and rhythm without murmurs rubs or gallops. ABDOMINAL: Soft, nontender, nondistended, normal bowel sounds MUSCULOSKELETAL: Moves all extremities. Tenderness to palpation of the calf. Patient is able to dorsiflex and plantarflex her foot to resistance. Patient does have a palpable Achilles tendon. NEURO: Alert. Cranial nerves II through XII intact. Good gait. Good coordination SKIN: Warm, dry. Normal Color PSYCHIATRIC: Normal affect/mood. Course Course Emergency Course: Patient was going to be splinted with an Ortho-Glass splint and provided crutches for nonweightbearing. Patient called orthopedics herself and initially wanted to get a CT scan. Dr. Schulz then changed his plan and met with the patient scanned. He recommended placing in an Ortho boot and her having outpatient follow-up. No Ortho boots are available so she will pick one up at the office tomorrow. Patient will be scheduled for an outpatient MRI. All questions and concerns were addressed. Vital Signs Vital signs: Vital Signs Temperature 98.2 F 05/04/22 18:33 Pulse Rate 107 H 05/04/22 18:33 Respiratory Rate 18 05/04/22 18:33 Blood Pressure 128/91 H 05/04/22 18:33 Pulse Oximetry 99 05/04/22 18:33 Oxygen Delivery Room Air 05/04/22 18:33 Temperature 98.2 F 05/04/22 18:33 Pulse Rate 107 H 05/04/22 18:33 Respiratory Rate 18 05/04/22 18:33 Blood Pressure 128/91 H 05/04/22 18:33 Pulse Oximetry 99 05/04/22 18:33 Oxygen Delivery Room Air 05/04/22 18:33 Medical Decision Making Vital Signs Vital Signs: Vital Signs Temperature 98.2 F 05/04/22 18:33 Pulse Rate 107 H 05/04/22 18:33 Respiratory Rate 18 05/04/22 18:33 Blood Pressure 128/91 H 05/04/22 18:33 Pulse Oximetry 99 05/04/22 18:33 Oxygen Delivery Room Air 05/04/22 18:33 Temperature 98.2 F 05/04/22 18:33 Pulse Rate 107 H 05/04/22 18:33 Respi
== END 2022-05-04 21:59 | disposition home or self-care (01) ==
PROVIDERS: Emergency Provider Emergency Medicine; PCP Internal Medicine Geriatric Medicine
DX: S86.011A Strain of right Achilles tendon, initial encounter (principal); X58.XXXA Exposure to other specified factors, initial encounter; Y93.66 Activity, soccer
CPT/HCPCS: 99282

== ENCOUNTER 2022-05-12 12:56 | Outpatient (CLI) | payer OTHER, SELFPAY ==
--- NOTE | ~2022-05-12 | XR_ITS ---
EXAM: XR ankle RT min 3V DATE: 05/12/2022 13:08 HISTORY: Pain after injury 2 weeks ago . COMPARISON: None available. FINDINGS: Normal mineralization. No fracture or dislocation. No lytic or blastic lesion. Mild tibiot alar osteophytosis. Smooth periosteal and cortical thickening along the distal lateral tibial cortex in the region of the syndesmosis, possibly related to chronic injury. No erosion or suspicious perios teal change. Soft tissues within normal limits. IMPRESSION: No acute osseous finding in the right ankle. Reviewed, dictated and finalized at location K.
== END 2022-05-12 12:57 | disposition home or self-care (01) ==
LOC: ANHBWCIMG 12:59
PROVIDERS: PCP Internal Medicine Geriatric Medicine; Visit Provider Orthopaedic Surgery
DX: M25.771 Osteophyte, right ankle (principal)
CPT/HCPCS: 73610

== ENCOUNTER 2022-05-17 12:55 | Outpatient (CLI) | payer OTHER, SELFPAY ==
--- NOTE | ~2022-05-17 | MR_ITS ---
EXAMINATION: MR lower leg RT wo con DATE: 05/17/2022 14:00 INDICATION: Achilles tendon rupture TECHNIQUE: Magnetic resonance imaging (MRI) of the right lower leg was performed without intravenous contrast. Sequences included axial, sagittal and coronal T1-weighted FSE, axial T2-weighted FS FSE an d sagittal and coronal fluid sensitive FSE STIR. COMPARISON: None. FINDINGS: Moderate Achilles tendinosis with full-thickness tear of the Achilles tendon occurring approximately 4 cm proximal to the calcaneal insertion. There is proximal retraction with approximately 3 cm separa tion of the ragged proximal and distal tear margins. There is feathery muscular edema within the sole us consistent with low-grade strain. More proximally in the left calf is a lenticular fluid collectio n most likely representing a hematoma located between including the soleus and the medial head of the gastrocnemius muscle measuring 13 cm craniocaudally and 3.2 x 1.2 cm in maximal transaxial dimension s. This extends along the plantaris tendon which distally extends in intact fashion across the region of the Achilles tendon tear. There appears be a partial tear of the tendon within the lenticular flu id collection. The remaining flexor and extensor tendons at the ankle and visualized foot remain norm al. Normal bone marrow signal throughout. No reactive edema, fracture or pathologic marrow replacing process. Joint spaces at the right ankle and visualized mid and hindfoot appear normal. Subcutaneous edema about the distal calf and ankle. IMPRESSION: 1. Moderate Achilles tendinosis with full-thickness tear 4 cm from the calcaneal insertion. 2. Low-grade strain of the more proximal soleus muscle belly and partial tear with associated 13 x 3. 2 x 1.2 cm hematoma along the plantaris tendon in the proximal calf. Reviewed, dictated and finalized at location A. IMPRESSION: 1. Moderate Achilles tendinosis with full-thickness tear 4 cm from the calcanea l insertion. 2. Low-grade strain of the more proximal soleus muscle belly and partial tear w ith associated 13 x 3.2 x 1.2 cm hematoma along the plantaris tendon in the pro ximal calf.
== END 2022-05-17 12:56 | disposition home or self-care (01) ==
PROVIDERS: PCP Internal Medicine Geriatric Medicine; Visit Provider Orthopaedic Surgery
DX: S86.011A Strain of right Achilles tendon, initial encounter (principal)
CPT/HCPCS: 73718

== ENCOUNTER 2025-03-08 15:14 | Outpatient (CLI) | payer OTHER, SELFPAY ==
--- OUTSIDE RECORDS SUMMARY | 2025-03-08 15:23 | XMS_ITS | Encounter Summary ---
Author Organization [facility] Address [address] [place] [address] Phone Care Team Providers Care Patient Service Rep Name Role Phone Mari Carter MD Primary Care Provider +- [phone] Oscar Mazariegos DO Unavailable [phone] Anupam Ravi MD Unavailable [phone] Abisai Villegas MD Unavailable [phone] Derrick Martines DO Unavailable Encounter Details Date Type Department Care Team (Late st Contact Info) Description 05/17/2022 Orders Only [facility] [address] [place] [address] Mari Carter MD [address] [place] [address] Social History Tobacco Use Types Packs/Day Years Used Date Smoking Tobacco: Never Smokeless Tobacco: Never Alcohol Use Standard Drinks/Week Comments Not Currently 0 (1 standard drink = 0.6 oz pur e alcohol) about 1 drink a month PHQ-2 Answer Date Recorded PHQ-2 Total Score (If total score is 3 or more points, staff should administer the PHQ-9) 0 12/04/2020 Comments No Sex and Gender Information Value Date Recorded Sex Assigned at Not on file Legal Sex Female 11:28 PM [employer] Gender Identity Female 08/05/2023 1:07 PM [employer] Sexual Orientation Straight 08/05/2023 1: 07 PM [employer] 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 Not on file documented as of this encounter Miscellaneous Notes * Result Encounter Note - Mari Carter MD - 06/10/2022 6:38 PM [employer] MRI confirms right Achilles tendon rupture [employer] documented in this encounter Plan of Treatment Not on file documented as of this encounter Procedures Procedure Name Priority Date/Time Associated Diagnosis Comments SCAN - RADIOLOGY/IMAGING 05/17/2022 documented in this encounter Results * SCAN - RADIOLOGY/IMAGING (05/17/2022) Anatomical Region Laterality Modality Other Mari Carter MD Final Resu lt documented in this encounter Visit Diagnoses Not on filedocumented in this encounter Additional Health Concerns Infection Onset Date Last Indicated Resolved Time COVID: Suspected 07/22/2023 07/22/2023 07/22/2023 12:37 PM [employer] COVID: Suspected 10/07/2024 10/07/2024 10/08/2024 3:05 AM [employer] documented as of this encounter Care Teams Patient Service Rep Relationship Specialty Start Date End Date Mari Carter MD PCP - General 05/23/16 Oscar Mazariegos DO [address] [place] [address] Referring Physician Optometry 03/08/18 Anupam Ravi MD [address] [address] Referring Physician Obstetrics and Gynecology 03/08/18 Abisai Villegas MD [address] [place] [address] Referring Physician Dermatology 12/04/20 [place] [address] [place] [address] Referring Physician Physical Medicine and Rehabilitation 06/24/22 documented as of this encounter
--- OUTSIDE RECORDS SUMMARY | 2025-03-08 15:23 | XMS_ITS | Clinical Summary ---
Author Organization [facility] Address [address] [place] [place] [address] Care Team Providers Care Embroidery Supervisor Name Role Phone Deanne Carter MD Primary Care Provider [phone] Source Comments [facility],non-owned Affiliates and Associated Physician Practices is amultiple site organization consisting of ambulatory clinics and hospital sitesin [place], [place], [place] and [place]. This disclosure is being madepursuant to the Care Everywhere program and may not contain all information available regarding this patient. Last updated 18.[facility] Allergies No known active allergies Medications * Be aware that medications may not be up to date on this document. Alwaysverify current medications with the patient. Vit-Fe Fumarate-FA ( VITAMIN) 28-0.8 MG tablet Take 1 tablet by mouth once daily Active enoxaparin (LOVENOX) injection Inject 80 mg subcutaneously once daily Taking 75 mg BID Active FIBER ADULT GUMMIES PO Active Active Problems Problem Noted Date Diagnosed Date Abnormal ultrasound 02/04/2019 Overview (02/04/2019): abdominal cyst reported on outside scan Third 02/04/2019 Pulmonary embolism affecting , antepart um 07/07/2017 Family History Medical History Relation Name Comments CVA Maternal Grandfather Cancer - Skin, Melanoma Maternal Grandfather Diabetes - Type 2 Paternal Grandfather Leukemia Paternal Grandfather Cancer - Uterine Paternal Grandmother Diabetes - Type 2 Paternal Grandmother Relation Name Status Comments Maternal Grandfather Paternal Grandfather Paternal Grandmother Social History Tobacco Use Types Packs/Day Years Used Date Smoking Tobacco: Never Smokeless Tobacco: Never Tobacco Cessation:Counseling Given: Yes Alcohol Use Standard Drinks/Week Comments No 0 (1 standard drink = 0.6 oz pur e alcohol) Comments No Sex and Gender Information Value Date Recorded Sex Assigned at Not on file Legal Sex Female 2:34 PM DIRECTOR OF SAFETY AND SECURITY Gender Identity Not on file Sexual Orientation Not on file Last Filed Vital Signs Vital Sign Reading Time Taken Comments Blood Pressure 118/65 07/08/2017 2:47 PM DIRECTOR OF SAFETY AND SECURITY Pulse 90 07/08/2017 2:47 PM DIRECTOR OF SAFETY AND SECURITY Temperature - - Respiratory Rate - - Oxygen Saturation - - Inhaled Oxygen Concentration - - Weight 79.4 kg (175 lb) 07/08/2017 2:47 PM DIRECTOR OF SAFETY AND SECURITY Height 162.6 cm (5' 4) 07/08/2017 2:48 PM DIRECTOR OF SAFETY AND SECURITY Body Mass Index 30.04 07/08/2017 2:47 PM DIRECTOR OF SAFETY AND SECURITY Plan of Treatment Health Maintenance Due Date Last Done Comments HIV SCREENING 2001 HEPATITIS C SCREENING 08/23/2004 DTAP/TDAP/TD VACCINES (1 - Tdap) 2005 HEPATITIS B VACCINE (1 of 3 - 19+ 3-dose series) 2005 HPV VACCINE (1 - 3-dose SCDM series) 2013 COVID-19 VACCINE (1 - 2023-2 5 season) 2024 DEPRESSION SCREENING 08/03/2024 INFLUENZA VACCINE (#1) 2025 05/23/2016 ZOSTER VACCINE (1 of 2) 2036 HIB VACCINE Aged Out No longer eligi ble based on patient's age to complete this topic MENINGOCOCCAL (Group B) VACC INE SHARED DECISION-MAKING Aged Out No longer eligibl e based on patient's age to complete this topic MENINGOCOCCAL GROUPS A/C/Y/W VACCINE Aged Out No longer eligible b ased on patient's age to complete this topic PNEUMOCOCCAL VACCINE Aged Out No long er eligible based on patient's age to complete this topic Insurance [facility] Care Teams Embroidery Supervisor Relationship Specialty Start Date End Date Deanne Carter MD [address] [place] [address] PCP - General Internal Medicine 06/30/17
--- OUTSIDE RECORDS SUMMARY | 2025-03-08 15:23 | XMS_ITS | Encounter Summary ---
Author Organization [facility] Address [address] [place] [address] Phone Care Team Providers Care Drain Cleaner Plumber Name Role Phone Mari Carter MD Primary Care Provider [phone] Oscar Mazariegos DO Unavailable [phone] Anupam Ravi MD Unavailable [phone] Abisai Villegas MD Unavailable [phone] Derrick Martines DO Unavailable Encounter Details Date Type Department Care Team (Late st Contact Info) Description 04/12/2022 Orders Only [facility] [address] [place] [address] Scanning, Provider Social History Tobacco Use Types Packs/Day Years [...] on file Legal Sex Female 11:28 PM JUNIOR ESTIMATOR Gender Identity Female 08/05/2023 1:07 PM JUNIOR ESTIMATOR Sexual Orientation Straight 08/05/2023 1: 07 PM JUNIOR ESTIMATOR 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 Not on file documented as of this encounter Plan of Treatment Not on file documented as of this encounter Procedures Procedure Name Priority Date/Time Associated Diagnosis Comments SCAN - RADIOLOGY/IMAGING 04/12/2022 documented in this encounter Results * SCAN - RADIOLOGY/IMAGING (04/12/2022) Anatomical Region Laterality Modality Other us Provider Scanning Final Result documented in this encounter Visit Diagnoses Not on filedocumented in this encounter Additional Health Concerns Infection Onset Date Last Indicated Resolved Time COVID: Suspected 07/22/2023 07/22/2023 07/22/2023 12:37 PM JUNIOR ESTIMATOR COVID: Suspected 10/07/2024 10/07/2024 10/08/2024 3:05 AM JUNIOR ESTIMATOR documented as of this encounter Care Teams Drain Cleaner Plumber Relationship Specialty Start Date End Date Mari Carter MD PCP - General 05/23/16 Oscar Mazariegos DO [address] [place] [address] Referring Physician Optometry 03/08/18 Anupam Ravi MD [address] [facility] [address] [place] [address] Referring Physician Obstetrics and Gynecology 03/08/18 Abisai Villegas MD [address] [place] [address] Referring Physician Dermatology 12/04/20 [place] [address] [place] [address] Referring Physician Physical Medicine and Rehabilitation 06/24/22 documented as of this encounter
--- OUTSIDE RECORDS SUMMARY | 2025-03-08 15:23 | XMS_ITS | Encounter Summary ---
Author Organization [facility] Address [address] [place] [address] Care Team Providers Care Manager Reading Name Role Phone Mari Carter MD Primary Care Provider [phone] Oscar Mazariegos DO Unavailable [phone] Anupam Ravi MD Unavailable [phone] Abisai Villegas MD Unavailable [phone] Derrick Martines DO Unavailable Encounter Details Date Type Department Care Team (Late st Contact Info) Description 04/01/2018 Orders Only [facility] Health Information Management [address] [place] [id number] Scanning, Provider Social History Tobacco Use Types Packs/Day Years Used Date Smoking Tobacco: Never Smokeless Tobacco: Never Alcohol Use Standard Drinks/Week Comments Yes 0 (1 standard drink = 0.6 oz pur e alcohol) about 1 drink a month Comments No Sex and Gender Information Value Date Recorded Sex Assigned at Not on file Legal Sex Female 11:28 PM BATCH ROLLER OPERATOR Gender Identity Female 08/05/2023 1:07 PM BATCH ROLLER OPERATOR Sexual Orientation Straight 08/05/2023 1: 07 PM BATCH ROLLER OPERATOR 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 Not on file documented as of this encounter Plan of Treatment Not on file documented as of this encounter Procedures Procedure Name Priority Date/Time Associated Diagnosis Comments CARDIOLOGY DOCUMENT SCAN 04/01/2018 documented in this encounter Results * Cardiology Document Scan (04/01/2018) Anatomical Region Laterality Modality Other us Provider Scanning CV CARDIAC SERVICES PROCEDURES Final Result documented in this encounter Visit Diagnoses Not on filedocumented in this encounter Additional Health Concerns Infection Onset Date Last Indicated Resolved Time COVID: Suspected 07/22/2023 07/22/2023 07/22/2023 12:37 PM BATCH ROLLER OPERATOR COVID: Suspected 10/07/2024 10/07/2024 10/08/2024 3:05 AM BATCH ROLLER OPERATOR documented as of this encounter Care Teams Manager Reading Relationship Specialty Start Date End Date Mari Carter MD PCP - General 05/23/16 Oscar Mazariegos DO [address] [place] [address] Referring Physician Optometry 03/08/18 Anupam Ravi MD [address] [facility] [address] [place] [address] Referring Physician Obstetrics and Gynecology 03/08/18 Abisai Villegas MD [address] [facility] [place] [address] Referring Physician Dermatology 12/04/20 [place] [address] [place] [address] Referring Physician Physical Medicine and Rehabilitation 06/24/22 documented as of this encounter
--- OUTSIDE RECORDS SUMMARY | 2025-03-08 15:23 | XMS_ITS | Encounter Summary ---
Author Organization [facility] Address [address] [place] [address] Phone Care Team Providers Care Fancy Stitcher Name Role Phone Mari Carter MD Primary Care Provider [phone] Oscar Mazariegos DO Unavailable [phone] Anupam aRvi MD Unavailable [phone] Abisai Villegas MD Unavailable [phone] Derrick Martines DO Unavailable Encounter Details Date Type Department Care Team (Late st Contact Info) Description 07/13/2017 Orders Only [facility] [address] [place] [address] Mari Carter MD [address] [place] [address] Social History Tobacco Use Types Packs/Day Years Used Date Smoking Tobacco: Never Assessed Comments Unknown Sex and Gender Information Value Date Recorded Sex Assigned at Not on file Legal Sex Female 11:28 PM REACH TRUCK OPERATOR Gender Identity Female 08/05/2023 1:07 PM REACH TRUCK OPERATOR Sexual Orientation Straight 08/05/2023 1: 07 PM REACH TRUCK OPERATOR documented as of this encounter Plan of Treatment Not on file documented as of this encounter Procedures Procedure Name Priority Date/Time Associated Diagnosis Comments SCAN - RADIOLOGY/IMAGING 07/13/2017 2:25 PM REACH TRUCK OPERATOR documented in this encounter Results * SCAN - RADIOLOGY/IMAGING (07/13/2017 2:25 PM REACH TRUCK OPERATOR) Anatomical Region Laterality Modality Other us Mari Carter MD Final Resu lt documented in this encounter Visit Diagnoses Not on filedocumented in this encounter Additional Health Concerns Infection Onset Date Last Indicated Resolved Time COVID: Suspected 07/22/2023 07/22/2023 07/22/2023 12:37 PM REACH TRUCK OPERATOR COVID: Suspected 10/07/2024 10/07/2024 10/08/2024 3:05 AM REACH TRUCK OPERATOR documented as of this encounter Care Teams Fancy Stitcher Relationship Specialty Start Date End Date Mari Carter MD PCP - General 05/23/16 Oscar Mazariegos DO [address] [place] [address] Referring Physician Optometry 03/08/18 Anupam Ravi MD [address] [address] Referring Physician Obstetrics and Gynecology 03/08/18 Abisai Villegas MD [address] [address] Referring Physician Dermatology 12/04/20 [place] [address] [place] [address] Referring Physician Physical Medicine and Rehabilitation 06/24/22 documented as of this encounter
--- OUTSIDE RECORDS SUMMARY | 2025-03-08 15:23 | XMS_ITS | Clinical Summary ---
Author Organization [facility] [place] [address] Address [address] [place] [address] Care Team Providers Care Transitional Studies Instructor Name Role Phone Mari Carter MD Primary Care Provider [phone] Oscar Mazariegos DO Unavailable [phone] Anupam Ravi MD Unavailable [phone] Abisai Villegas MD Unavailable Derrick Martines DO Unavailable Allergies Active Allergy Reactions Criticality Noted Date Comments Gum Rnfmxr-Xrmltl-Bvqu-Alcohol Unknown Low 06/12 Medications Xofluza 40 mg tablet Take 1 tablet (40 mg total) by mouth once 07/28/20 22 Active albuterol HFA (ProAir HFA) 90 mcg/actuation inhalerIndications :Acute cough Inhale 2 puffs every 6 (six) hours as needed for wheezing or shortness of breath 1 each 07/22/20 23 Active Additional Information Patient not taking.Reported on 10/07/2024 meloxicam (MOBIC) 15 mg tabletIndications: Tear of medial meniscus of left knee, current, unspecified tear type, sequela,Nontraumat ic shoulder pain, unspecified laterality Take 1 tablet (15 mg total) by mouth daily as needed for pain (Joint pain, Shoulder pain/ overuse injury) 90 tablet 1 09/14/19 25 026 Active busPIRone (BUSPAR) 7.5 mg tabletIndications: Generalized Anxiety Disorder Take 1 tablet (7.5 mg total) by mouth 3 (three) times a day as needed (Anxiety) 90 tablet 3 09/14/19 25 Active Additional Information Patient not taking.Reported on 10/07/2024 ondansetron ODT (ZOFRAN-ODT) 4 mg disintegrating tabletIndications: Nausea Take 1 tablet (4 mg total) by mouth every 8 (eight) hours as needed for nausea or vomiting 20 tablet 1 09/14/19 25 Active tiZANidine (ZANAFLEX) 2 mg tabletIndications: Nontraumatic shoulder pain, unspecified laterality Take 1 tablet (2 mg total) by mouth every 6 (six) hours as needed for muscle spasms 30 tablet 2 09/14/19 25 Active Additional Information Patient not taking.Reported on 11/21/2024 aspirin 81 mg enteric coated tablet Take 1 tablet (81 mg total) by mouth daily Active vndaprfz-jujbbya-p sophia-lutein tablet Take by mouth Active Active Problems Problem Noted Date Diagnosed Date Family history of heart disease 09/14/2024 Family history of leukemia 09/14/2024 Generalized anxiety disorder 12/10/2022 Assessment & Plan (01/09/2023 12:10 PM CDT): Improved on current dose of BuSpar. No new symptoms or acute findings on exam, will refill in office today. Relaxation techniques as discussed. Assessment & Plan (12/10/2022 8:55 PM CDT): Admits anxiety due to increased stress at home and with ugly divorce. Scored 7 on Yang-7 today, 0 on PHQ-2. Admits it is causing her decrease concentration, aches, and menstrual changes. Rxd BuSpar as instructed. Relaxation techniques such as deep breathing and music therapy encouraged. Follow in 1month. Multiple-type hyperlipidemia 06/24/2022 Tear of medial meniscus of left knee, current Pain of right lower extremity 05/07/2022 Assessment & Plan (05/09/2022 4:39 PM CDT): See plan for leg swelling above. Pulmonary embolism affecting in second trimester 03/08/2018 Resolved Problems Problem Noted Date Diagnosed Date Resolved Date Acute cough 07/22/2023 09/14/2024 Assessment & Plan (07/22/2023 12:56 PM ENVIRONMENTAL HEALTH AIDE): Cough on and off for about 4 weeks, keeps getting better then worse again. Associated symptoms include chest tightness and PND. Denies fever. Some wheezing on exam today. Likely bronchitis, viral vs bacterial d/t duration of symptoms . Rx medrol dose pack, z-pack, and albuterol inhaler Chest xray to r/o pneumonia URI symptomatic treatment as outlined in AVS Patient to follow-up if no improvement in symptoms Patient due for physical with Dr. Carter Cervicalgia 12/10/2022 09/14/2024 Assessment & Plan (12/10/2022 8:52 PM CDT): Likely related to anxiety, mild tenderness as noted above. No acute findings. Rxd Meloxicam and Tizanidine as instructed. Heat/ice as tolerated. Gentle stretching encouraged. Massage may also help. Vaginal spotting 06/24/2022 09/14/2024 Ruptured, tendon, Achilles, right, initial encounter 05/23/2022 12/10/2022 Overview (05/23/2022): Added automatically from request for surgery [id number] Swelling of left ring finger 05/07/2022 09/14/2024 Assessment & Plan (12/10/2022 8:50 PM CDT): Barely grazed finger on her desk and had bruising and swelling for several days that has since improved. Mild swelling, no loss of ROM or deformity. Continue to monitor. Assessment & Plan (05/26/2022 11:15 AM CDT): Swelling spreading up posterior calf after ankle injury 3 days ago. Dull aching pain reported, denies numb/tingling or overlying skin changes to calf. PMH of PE with 3 years ago noted. Taking 81mg ASA daily. Point tenderness to calf noted, unable to perform Homans test due to ankle immobility. Will order venous doppler to r/o clot. Monitor symptoms carefully. Continue ASA. Call with any changes or concerns. Keep follow in 6 weeks as scheduled, sooner if needed. ADDENDUM: venous doppler negative for clot. Low risk for surgical complications for achilles tendon repair. Achilles tendon injury, right, sequela 05/07/2022 06/24/2022 Assessment & Plan (05/26/2022 11:14 AM CDT): Crushing injury while playing soccer 3 days ago. Saw orthopedist the next day, states he thought it was a torn achilles and has ordered an MRI that is pending. Physical exam findings and weakness as noted above. Keep wearing ortho boot. Ice as tolerated. OTC meds as needed for pain. Follow up in 6 weeks, sooner if needed. ADDENDUM: venous doppler negative for clot, patient low risk for surgical complications for achilles tendon repair. Menorrhagia with regular cycle 12/04/2020 09/14/2024 Overview (12/04/2020): Evaluated by Dr. RAVI and require D and C with resolution of symptoms Thrombosed external hemorrhoid 06/01/2019 12/04/2020 Overview (06/01/2019): Added automatically from request for surgery [id number] Assessment & Plan (07/21/2019 9:52 AM ENVIRONMENTAL HEALTH AIDE): The patient is currently on Lovenox for a PE that occurred during her . I believe that the serous drainage as well as bleeding is a combination of the Lovenox as well as a small separation given how large her hemorrhoid was. Currently there is nothing that I would change with her current management. Sitz baths for comfort and bowel regimen to ensure soft bowel movements. Once she is off the anticoagulation I anticipate that the bleeding will stop. The small separation from the hemorrhoid excision should also close with time and that serous drainage will stop as well. She is in understanding and in agreement with the plan. If anything changes before hand she will call us. Assessment & Plan (06/14/2019 10:03 AM ENVIRONMENTAL HEALTH AIDE): At the initial surgery all 3 hemorrhoidal columns were affected. There were 2 that were quite prominent and large. We discussed that there was a smaller 1 that was left out of concern to not narrow the anal verge. However it looks like this has now become symptomatic. I discussed just removing the external component to relieve the pressure in the office today. Given how tender things still are she wants to hold off and see if it will resolve on its own. She will call us back if anything worsens. Continue Sitz baths for comfort and bowel regimen Assessment & Plan (06/01/2019 3:45 PM CDT): Patient wishes for hemorrhoidectomy- we discussed the risks, benefits, and post operative period with special attention the to pain aspect after surgery. We also discussed the role of narcotics after surgery and using stool softener. She is , asked the patient to consult with her stretch machine operator on recommendations for pain management and pumping/dumping. Will schedule for local anesthesia. Perianal venous thrombosis 06/01/2019 0 12/04/2020 Overview (06/02/2019): Added automatically from request for surgery [id number] Expressive aphasia syndrome 03/08/2018 12/04/2020 Overview (04/06/2018): Echo bubble study (-) [facility] 04/01/2018 MRI 03/17/2018 (-) FINDINGS: The brain signal intensity with its verduzco-white matter interface is overall normal. No midline shift or extra-axial fluid collections are seen. No restricted diffusion is evident to indicate acute or subacute ischemia. Appropriate intracranial flow voids are seen. The orbits, periorbital spaces, and pericavernous spaces are normal. No abnormality of the skull base or calvarium is seen. IMPRESSION: 1. No acute intracranial process. Electronically signed by: Jamil Briones M.D. Immunizations Immunization Administration Dates Next Due DTaP, Unspecified 09/30/1991, 8,03/06/1987,12/27,1986 Hep B, Unspecified 02/24/1997,08/12/1996, 996 IPV 09/30/1991, 7,1986,10/27 Influenza, Quadrivalent, Spl it, Preservative Free, Intramuscular 06/29/2023,05/27/2021,05/06/2019 Influenza, Trivalent, IM (MDV) 05/23/2016 Influenza, Trivalent, Preser vative Free, Intramuscular 06/21/2024 MMR 08/16/2015,10/12/1992,12/18/1987 Pfizer SARS-CoV-2 Monovalent Vaccination (12+ Yrs) PURPLE 08/10/2020,07/20/2020 Td, Unspecified 06/29/2002 Tdap 03/28/2019,08/03/2015 Surgical History Surgery Date Site/Laterality Comments MOLE REMOVAL Right arm HEMORRHOID SURGERY 06/03/2019 HYSTEROSCOPY 10/12/2020 with urethral sling INCONTINENCE SURGERY KNEE ARTHROSCOPY Right Medical History Medical History Date Comments Femur fracture 3 para 3 Pulmonary embolism 2017 28 weeks preg nant Hemorrhoid Thrombosed external hemorrhoid 06/01/2019 A dded automatically from request for surgery [id number] Perianal venous thrombosis 06/01/2019 Added automatically from request for surgery [id number] Expressive aphasia syndrome 03/08/2018 Echo bubble study (-) [facility] 04/01/2018 MRI 03/17/2018 (-) FINDINGS: The brain signal intensity with its verduzco-white matter interface is overall normal. No midline shift or extra-axial fluid collections are seen. No restricted diffusion is evident to indicate acute or subacute ischemia. Appropriate intracranial flow voids are seen. The orbits, periorbital spaces, and pericaver Family History Medical History Relation Name Comments Heart attack Maternal Grandfather Melanoma Maternal Grandfather Osteoporosis Maternal Grandmother Leukemia Paternal Grandfather Stroke Paternal Grandfather Uterine cancer Paternal Grandmother Asthma Sister Relation Name Status Comments Maternal Grandfather Maternal Grandmother Paternal Grandfather Paternal Grandmother Sister Social History Tobacco Use Types Packs/Day Years Used Date Smoking Tobacco: Never Smokeless Tobacco: Never Tobacco Cessation:Counseling Given: Not Answered Alcohol Use Standard Drinks/Week Comments Not Currently 0 (1 standard drink = 0.6 oz pur e alcohol) about 1 drink a month AUDIT-C Answer Date Recorded Q1: How often do you have a drink containing alcohol? Never 09/26/2024 Q2: How many drinks containi ng alcohol do you have on a typical day when you are drinking? Patient does not drink Q3: How often do you have si x or more drinks on one occasion? Never 09/26/2024 PHQ-2 Answer Date Recorded PHQ-2 Total Score (If total score is 3 or more points, staff should administer the PHQ-9) 0 09/14/2024 Personal Safety Answer Date Recorded Have you ever been in or are you currently in a harmful physical or emotional relationship or is someone making you feel afraid or unsafe? Denies 09/24/2024 Comments No Sex and Gender Information Value Date Recorded Sex Assigned at Not on file Legal Sex Female 11:28 PM ENVIRONMENTAL HEALTH AIDE Gender Identity Female 08/05/2023 1:07 PM ENVIRONMENTAL HEALTH AIDE Sexual Orientation Straight 08/05/2023 1: 07 PM ENVIRONMENTAL HEALTH AIDE 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 Not on file Obstetrics History Para Term AB IAB SAB Ectopic Multiple Livin g Live Births 3 2 1 2 2 Date Outcome GA Total Labor Labor/2nd/3rd Weight Sex Type Anes PTL Carla A1 A5 Name Clin 2015 Term 39w 0d F Vag-S pont Living 2017 Para 39w 0d F Vag-S pont Living Last Filed Vital Signs Vital Sign Reading Time Taken Comments Blood Pressure 112/77 11/21/2024 3:08 PM CDT Pulse 82 11/21/2024 3:08 PM CDT Temperature 36.9 C (98.4 F) 10/07/2024 10:53 AM ENVIRONMENTAL HEALTH AIDE Respiratory Rate 18 10/07/2024 10:53 AM ENVIRONMENTAL HEALTH AIDE Oxygen Saturation 95% 10/07/2024 10:53 AM ENVIRONMENTAL HEALTH AIDE Inhaled Oxygen Concentration - - Weight 65.8 kg (145 lb) 11/21/2024 3:08 PM CDT Height 162.6 cm (5' 4) 11/21/2024 3:08 PM CDT Body Mass Index 24.89 11/21/2024 3:08 PM CDT Plan of Treatment Health Maintenance Due Date Last Done Comments Cervical Cancer Screening 1986 Hepatitis C Screening 1986 Varicella Vaccines (1 of 2 - 13+ 2-dose series) 1999 HPV Vaccines (1 - 3-dose SCDM series) 2013 Covid-19 Vaccine ( season) 2024 08/10/2020, 07/20/2020 Influenza Vaccine (#1) 2025 , 06/29/2023, 05/27/2021, Additional history exists Depression Screening 09/14/2025 09/14/2024, 12/05/19 21 Regular Well Visit/Exam 18-64 09/14/2025 09/14/2024, 06/24/2022, 12/04/2020, Additional history exists DTaP/Tdap/Td Vaccine (8 - Td or Tdap) 03/28/2029 03/28/2019, 08/03/2015, 06/29/2002, Additional history exists Hepatitis B Screening Completed 02/24/1997 , 08/12/1996, 07/29/1996 Pneumococcal vaccine <65 Aged Out No longer eligible based on patient's age to complete this topic Medical Devices Implanted Type Area Skylights Assembler Device Identifier Shelf Expiration Date Model / Serial / Lot [employer] Achilles Speedbridge [employer] Midsubstance System Fixation [id number] - [id number] Implanted:Qty: 1 on 05/27/2022 by Galo Retana MD at [facility] Right: Foot [employer] 01/31/2024 [id number] / / [id number] Insurance [facility] PLUS [facility] CHOICE PLUS [facility] CHOICE PLUS [employer]ANS Address: [facility] [address] [address] Advance Directives For more information, please contact: [phone] Documents on File Type Date Recorded Patient Postal Clerk Expl anation ADVANCE DIRECTIVE 06/24/2022 POWER OF A TTORNEY-MEDICAL ADVANCE DIRECTIVE 12/04/2020 ADVANCE DIRECTIVE 03/08/2018 POWER OF A TTORNEY Care Teams Transitional Studies Instructor Relationship Specialty Start Date End Date Mari Carter MD PCP - General 05/23/16 Oscar Mazariegos DO [address] [place] [address] Referring Physician Optometry 03/08/18 Anupam Ravi MD [address] [address] Referring Physician Obstetrics and Gynecology 03/08/18 Abisai Villegas MD [address] [facility] [place] [address] Referring Physician Dermatology 12/04/20 [place] [address] [place] [address] Referring Physician Physical Medicine and Rehabilitation 06/24/22
--- OUTSIDE RECORDS SUMMARY | 2025-03-08 15:23 | XMS_ITS | Clinical Summary ---
Author Organization [facility] Address [address] [address] Phone Care Team Providers Care Sewing Machine Operator Semiautomatic Name Role Phone Mari Carter MD Primary Care Provider [phone] Allergies No known active allergies Medications ASPIRIN PO Take by mouth. Acti ve methylPREDNISol one (Medrol) 4 MG Tablet Therapy PackIndications :Cough Use as per instructions on package. 21 Tab 0 Active Active Problems No known active problems Social History Tobacco Use Types Packs/Day Years Used Date Smoking Tobacco: Never Smokeless Tobacco: Never Comments No Sex and Gender Information Value Date Recorded Sex Assigned at Not on file Legal Sex Female 2:06 PM CDT Gender Identity Not on file Sexual Orientation Not on file Last Filed Vital Signs Vital Sign Reading Time Taken Comments Blood Pressure 86/62 05/31/2020 9:02 AM CDT Pulse 86 05/31/2020 9:02 AM CDT Temperature 37 C (98.6 F) 05/31/2020 9:02 AM CDT Respiratory Rate 20 05/31/2020 9:02 AM CDT Oxygen Saturation 98% 05/31/2020 9:02 AM CDT Inhaled Oxygen Concentration - - Weight - - Height - - Body Mass Index - - Plan of Treatment Health Maintenance Due Date Last Done Comments Hepatitis C Virus (HCV) Screening 1986 Hepatitis B Immunization (3 of 3 - 3-dose series) 04/21/1997 02/24/1997, 08/12/1996, 07/29/1996 Pap Smear 2007 Human Papillomavirus (HPV) Immunization (1 - 3-dose SCDM series) 2013 Cervical Cancer Screening (CCS) 2016 HPV/Cotest 2016 SARS-COV-2 Immunization ( - season) 2024 08/10/2020, 07/20/2020 Influenza Immunization (#1) 2025 05/06/2019 Respiratory Syncytial Virus (RSV) Immunization (Adult) (1 - 1-dose 75+ series) 2061 DTaP/Tdap/Td Immunization Discontinued 2018, 08/03/2015, 06/29/2002 TdaP Immunization Completed 03/28/2019, 08/03/2015 Meningococcal Immunization (ACWY) Aged Out No longer eligible based on patient's age to complete this topic Pneumococcal Immunization Combined Aged Out No longer eligible based on patient's age to complete this topic Rotavirus Immunization Aged Out No lo nger eligible based on patient's age to complete this topic Care Teams Sewing Machine Operator Semiautomatic Relationship Specialty Start Date End Date Mari Carter MD [address] [facility] [place] [address] PCP - General Geriatric Medicine 05/31/20
[2025-03-17 18:08] LABS: Testosterone, Total, LC/MS 23 ng/dL (.)
== END 2025-03-08 15:15 | disposition home or self-care (01) ==
LOC: ANHLAB 15:16
PROVIDERS: PCP Internal Medicine Geriatric Medicine; Visit Provider Nurse Practitioner Family
DX: L65.9 Nonscarring hair loss, unspecified (principal)
CPT/HCPCS: 84403